=== PATIENT | male | born 1975 | race Two or more races ===

== ENCOUNTER 2017-12-29 21:44 | Emergency (ER) | payer SELFPAY ==
[~2017-12-29] VITALS: Ht 162.6 cm; Wt 65.8 kg
[2017-12-29 22:48] VITALS: BP 123/86
== END 2017-12-29 22:58 | disposition left against medical advice (07) ==
LOC: ER 21:44 → EDBD 21:44 → ER 22:58
DX: M79.602 Pain in left arm (principal); Z53.21 Procedure and treatment not carried out due to patient leaving prior to being seen by health care provider